=== PATIENT | male | born 2000 | race American Indian/Alaskan Native ===

== ENCOUNTER 2019-03-23 15:37 | Emergency (ER) | payer OTHER ==
--- NOTE | 2019-03-23 15:49 | Emergency Department Report ---
Stated Complaint: MH EVAL Time Seen by Provider: 03/23/19 15:46 - HPI History of Present Illness: TO MAIN WILL NOT LOOK AT [facility] MOTHER REPORTS SI HE STATES PROBLEM IS HIS PARENTS MSE screening note: Focused history and physical exam performed. Due to findings the following was ordered: ED Disposition for MSE Condition: Stable
[2019-03-23 16:13] LABS: Basophils # (Auto) 0.1 K/mm3 (0.0-0.1); Basophils % (Auto) 0.9 % (0.0-1.8); Eosinophils # (Auto) 0.2 K/mm3 (0.0-0.4); Eosinophils % (Auto) 4.1 % (0.0-4.3); Hematocrit 41.2 % (35.5-45.6); Hemoglobin 13.8 gm/dl (11.8-15.2); Lymphocytes # (Auto) 2.2 K/mm3 (1.2-5.4); Lymphocytes % (Auto) 37.3 % (13.4-35.0); Mean Corpuscular HGB Conc 33 % (32-34); Mean Corpuscular Volume 85 fl (84-94); Monocytes # (Auto) 0.6 K/mm3 (0.0-0.8); Monocytes % (Auto) 9.9 % (0.0-7.3); Platelet Count 198 K/mm3 (140-440); Red Blood Count 4.87 M/mm3 (3.65-5.03); Red Cell Distribution Width 14.5 % (13.2-15.2)
[2019-03-23 16:31] LABS: Alanine Aminotransferase 19 units/L (7-56); Albumin 4.1 g/dL (3.9-5); BUN/Creatinine Ratio 12; Blood Urea Nitrogen 12 mg/dL (9-20); Calcium 9.1 mg/dL (8.4-10.2); Hemolysis Index 6
[2019-03-23 16:49] LABS: Amphetamine Screen,Urine PRESUMPTIVE NEGATIVE; Benzodiazepines Screen,Urine PRESUMPTIVE NEGATIVE; Cannabinoid Screen,Urine PRESUMPTIVE NEGATIVE; Cocaine Screen,Urine PRESUMPTIVE NEGATIVE; Methadone Screen,Urine PRESUMPTIVE NEGATIVE; Opiate Screen,Urine PRESUMPTIVE NEGATIVE
--- NOTE | 2019-03-23 17:12 | Emergency Department Report ---
ED Psych HPI - General Chief Complaint: Psych Stated Complaint: ERNESTO EVNATALIA Time Seen by Provider: 03/23/19 15:46 Source: patient Mode of arrival: Ambulatory - History of Present Illness Initial Comments: Patient is 18 years old male with no significant past medical history. Most of the history is from his aunt who is his caregiver. Patient parents both in the house. Patient aunt stated that the patient stayed with his father body for 7 days in the house before telling anyone. Aunt stated that patient used to live in [place]. Patient aunt stated that she received a call from his teachers that he is living in a abandon house and she brought him to [place] but noticed that patient is very depressed and talking to himself at night. When I asked the patient he stated that he talk to his mother and father mainly at night and they asked him to stay awake so they can talk to him. Patient aunt stated that sometimes he will tell his aunt that he don't have any reason to stay in this world. Aunt is afraid that he will run away from her or hurt himself. Complaint: feels depressed, altered mental status -: week(s) Associated Psychiatric Symptoms: depression, auditory hallucinations Quality: constant Associated Symptoms: denies other symptoms - Related Data Allergies Allergy/AdvReac Type Severity Reaction Status Date / Time No Known Allergies Allergy Unverified 03/23/19 16:09 ED Review of Systems ROS: Stated complaint: ERNESTO EVAL Other details as noted in HPI Comment: All other systems reviewed and negative Constitutional: denies: chills, fever Respiratory: denies: cough, orthopnea, shortness of breath, SOB with exertion, SOB at rest, wheezing Cardiovascular: denies: chest pain, palpitations Gastrointestinal: denies: abdominal pain, nausea, diarrhea, constipation, hematemesis, melena, hematochezia Musculoskeletal: denies: back pain Neurological: denies: headache, weakness, numbness, paresthesias, confusion, abnormal gait Psychiatric: depression, auditory hallucinations, suicidal thoughts. denies: visual hallucinations, homicidal thoughts ED Past Medical Hx - Past Medical History Previous Medical History?: No - Surgical History Past Surgical History?: No - Social History Smoking Status: Never Smoker Substance Use Type: None ED Physical Exam - General Limitations: No Limitations General appearance: alert, other (depressed) - Head Head exam: Present: atraumatic, normocephalic, normal inspection - Eye Eye exam: Present: normal appearance - ENT ENT exam: Present: normal exam, normal orophraynx, mucous membranes moist - Neck Neck exam: Present: normal inspection, full ROM. Absent: tenderness, meningi smus, lymphadenopathy, thyromegaly - Respiratory Respiratory exam: Present: normal lung sounds bilaterally. Absent: respiratory distress, wheezes, rales, rhonchi, chest wall tenderness, accessory muscle use, decreased breath sounds, prolonged expiratory - Cardiovascular Cardiovascular Exam: Present: regular rate, normal rhythm, normal heart sounds - GI/Abdominal GI/Abdominal exam: Present: soft, normal bowel sounds. Absent: distended, tenderness, guarding, rebound, rigid, organomegaly, mass, bruit, pulsatile mass - Extremities Exam Extremities exam: Present: normal inspection, full ROM, normal capillary refill - Back Exam Back exam: Present: normal inspection, full ROM. Absent: tenderness, CVA tenderness (R), CVA tenderness (L), muscle spasm, paraspinal tenderness, vertebral tenderness - Neurological Exam Neurological exam: Present: alert, oriented X3, CN II-XII intact, normal gait, reflexes normal - Psychiatric Psychiatric exam: Present: depressed. Absent: agitated, anxious, flat affect, manic, homicidal ideation, suicidal ideation - Skin Skin exam: Present: warm, intact, normal color ED Course Vital Signs 03/23/19 03/23/19 16:08 20:48 Temperature 98.9 F 98.0 F Pulse Rate 67 75 Respiratory 18 18 Rate Blood Pressure 124/55 Blood Pressure 114/54 [Left] O2 Sat by Pulse 98 99 Oximetry ED Medical Decision Making - Lab Data Result diagrams: 03/23/19 16:03 03/23/19 16:03 - Medical Decision Making Patient is 18 years old male with no significant past medical history. Most of the history is from his aunt who is his caregiver. Patient parents both in the house. Patient aunt stated that the patient stayed with his father body for 7 days in the house before telling anyone. Aunt stated that patient used to live in [place]. Patient aunt stated that she received a call from his teachers that he is living in a abandon house and she brought him to [place] but noticed that patient is very depressed and talking to himself at night. When I asked the patient he stated that he talk to his mother and father mainly at night and they asked him to stay awake so they can talk to him. Patient aunt stated that sometimes he will tell his aunt that he don't have any reason to stay in this world. Aunt is afraid that he will run away from her or hurt himself. Patient is medically cleared to be admitted to inpatient psychiatric facility. Critical care attestation.: If time is entered above; I have spent that time in minutes in the direct care of this critically ill patient, excluding procedure time. ED Disposition Clinical Impression: Acute psychosis Disposition: [id number]/[facility]-65 PSY HOSP/PSY UNIT Is pt being admited?: No Condition: Stable
[2019-03-23 19:14] LABS: Mucus,Urine FEW /HPF
[2019-03-23 19:20] LABS: Bilirubin,Urine NEG (Negative); Blood,Urine NEG (Negative); Color,Urine Yellow (Yellow); Protein,Urine <15 mg/dL mg/dL (Negative); WBC,Urine < 1.0 /HPF (0.0-6.0)
[2019-03-24 07:48] VITALS: BP 114/65
== END 2019-03-24 14:10 ==
LOC: EEVIPCON 15:37 → ED 15:37
DX: F23 Brief psychotic disorder (principal)
CPT/HCPCS: 36415; 80053; 80307; 81001; 84443; 85025; 99285; G0480; 80320

== ENCOUNTER 2019-04-28 18:34 | Emergency (ER) | payer OTHER ==
--- NOTE | 2019-04-28 18:40 | Emergency Department Report ---
Blank Doc - Documentation Documentation: This is a 18-year-old male that presents with hearing voice. Denies SI/HI. This initial assessment/diagnostic orders/clinical plan/treatment(s) is/are subject to change based on patient's health status, clinical progression and re- assessment by fellow clinical providers in the ED. Further treatment and workup at subsequent clinical providers discretion. Patient/guardians urged not to elope from the ED as their condition may be serious if not clinically assessed and managed. Initial orders include: 1- Patient sent to MAIN ED for further evaluation and treatment 2- dry chain operator was notified to have patient be brought back [facility]. 3- RN was notified to keep patient as close range and observation until room available 4- Psych labs
[2019-04-28 19:28] LABS: Basophils % (Auto) 0.5 % (0.0-1.8); Eosinophils # (Auto) 0.2 K/mm3 (0.0-0.4); Eosinophils % (Auto) 3.8 % (0.0-4.3); Hematocrit 44.1 % (35.5-45.6); Hemoglobin 14.6 gm/dl (11.8-15.2); Lymphocytes # (Auto) 1.9 K/mm3 (1.2-5.4); Lymphocytes % (Auto) 32.6 % (13.4-35.0); Mean Corpuscular HGB Conc 33 % (32-34); Mean Corpuscular Volume 86 fl (84-94); Monocytes # (Auto) 0.6 K/mm3 (0.0-0.8); Monocytes % (Auto) 10.7 % (0.0-7.3); Platelet Count 219 K/mm3 (140-440); Red Blood Count 5.12 M/mm3 (3.65-5.03); Red Cell Distribution Width 14.6 % (13.2-15.2)
[2019-04-28 19:57] LABS: Bilirubin,Urine NEG (Negative); Blood,Urine NEG (Negative); Color,Urine Yellow (Yellow); Mucus,Urine FEW /HPF; Protein,Urine <15 mg/dL mg/dL (Negative); Urobilinogen,Urine < 2.0 mg/dL (<2.0); WBC,Urine < 1.0 /HPF (0.0-6.0)
[2019-04-28 20:05] VITALS: BP 129/51
--- NOTE | 2019-04-28 20:15 | Emergency Department Report ---
ED General Adult HPI - General Chief complaint: Psych Stated complaint: HEARING VOICES Time Seen by Provider: 04/28/19 18:39 Source: patient, family, RN notes reviewed, old records reviewed Mode of arrival: Ambulatory Limitations: No Limitations - History of Present Illness Initial comments: This is a 18-year-old gentleman. The patient is not known to this provider previously. The patient presents to the emergency room with a request for psychiatric evaluation. He denies physical pain at this time. He reports that he is hearing voices. Contrary to what is documented in nursing triage note, patient does not indicate that the voices are telling him to "fight things." However, he will state that the voices are occasionally telling him to not eat. He is not homicidal. He is not suicidal. He denies physical pain. He does not have access to guns or firearms. Reportedly, the patient was recently evaluated at this hospital for psychiatric reasons, had difficulty with personal insurance issues, went to an outpatient psychiatric hospital, and was reportedly prescribed medicines which neither he nor his relative can recall the names of, and he ran out of the aforementioned medications. He reportedly attempted to seek out outpatient psychiatric care and therapy, but has not been able to follow-up. An accompanying family member request that psychiatric medications be refilled. She does not know the names. -: Gradual Severity scale (0 -10): 0 Consistency: intermittent Improves with: none Worsens with: none - Related Data Home Medications Medication Instructions Recorded Confirmed Last Taken Unobtainable 03/24/19 03/24/19 Unknown Allergies Allergy/AdvReac Type Severity Reaction Status Date / Time No Known Allergies Allergy Unverified 03/23/19 16:09 ED Review of Systems ROS: Stated complaint: HEARING VOICES Other details as noted in HPI Constitutional: denies: fever Eyes: denies: eye pain ENT: denies: dental pain Cardiovascular: denies: chest pain Gastrointestinal: denies: abdominal pain Genitourinary: denies: testicular pain Musculoskeletal: denies: back pain Neurological: denies: headache Psychiatric: denies: visual hallucinations, homicidal thoughts, suicidal thoughts ED Past Medical Hx - Past Medical History Previous Medical History?: Yes Hx Psychiatric Treatment: Yes - Social History Smoking Status: Never Smoker Substance Use Type: None - Medications Home Medications: Home Medications Medication Instructions Recorded Confirmed Last Taken Type Unobtainable 03/24/19 03/24/19 Unknown History ED Physical Exam - General Limitations: No Limitations General appearance: alert, in no apparent distress - Head Head exam: Present: atraumatic, normocephalic - Eye Eye exam: Present: normal appearance, EOMI, other (visual acuity intact to finger counting, color perception, reading at a close distance). Absent: nystagmus - ENT ENT exam: Present: normal exam, normal orophraynx, mucous membranes moist, TM's normal bilaterally, normal external ear exam - Neck Neck exam: Present: normal inspection, full ROM. Absent: tenderness, meningismus - Respiratory Respiratory exam: Present: normal lung sounds bilaterally. Absent: respiratory distress - Cardiovascular Cardiovascular Exam: Present: regular rate, normal rhythm, normal heart sounds. Absent: bradycardia, tachycardia, irregular rhythm, systolic murmur, diastolic murmur, rubs, gallop - GI/Abdominal GI/Abdominal exam: Present: soft. Absent: distended, tenderness, guarding, pulsatile mass - Rectal Rectal exam: Present: deferred - Extremities Exam Extremities exam: Present: normal inspection, full ROM, other (2+ pulses noted in the bilateral upper extremities. There is no long bony tenderness. Moving 4 extremities spontaneously.) - Back Exam Back exam: Present: normal inspection, full ROM. Absent: tenderness, CVA tenderness (R), CVA tenderness (L), paraspinal tenderness, vertebral tenderness - Neurological Exam Neurological exam: Present: alert, oriented X3, normal gait, other (there is no facial droop. The tongue is midline. Extraocular movements are intact bilaterally. Speaking in full sentences. Hearing is grossly intact. Normal gait. 5 out of 5 strength in 4 extremities.). Absent: motor sensory deficit - Psychiatric Psychiatric exam: Present: flat affect - Skin Skin exam: Present: warm, dry, intact, normal color. Absent: rash ED Course Vital Signs 04/28/19 20:02 Temperature 98.8 F Pulse Rate 77 Respiratory 18 Rate Blood Pressure 129/51 [Right] O2 Sat by Pulse 99 Oximetry ED Medical Decision Making - Lab Data Result diagrams: 04/28/19 19:19 Vital Signs 04/28/19 20:02 Temperature 98.8 F Pulse Rate 77 Respiratory 18 Rate Blood Pressure 129/51 [Right] O2 Sat by Pulse 99 Oximetry Lab Results 04/28/19 04/28/19 Range/Units 19:19 19:30 WBC 5.8 (4.5-11.0) K/mm3 RBC 5.12 H (3.65-5.03) M/mm3 Hgb 14.6 (11.8-15.2) gm/dl Hct 44.1 (35.5-45.6) % MCV 86 (84-94) fl MCH 29 (28-32) pg MCHC 33 (32-34) % RDW 14.6 (13.2-15.2) % Plt Count 219 (140-440) K/mm3 Lymph % (Auto) 32.6 (13.4-35.0) % [place] % (Auto) 10.7 H (0.0-7.3) % Eos % (Auto) 3.8 (0.0-4.3) % Baso % (Auto) 0.5 (0.0-1.8) % Lymph # 1.9 (1.2-5.4) K/mm3 [place] # 0.6 (0.0-0.8) K/mm3 Eos # 0.2 (0.0-0.4) K/mm3 Baso # 0.0 (0.0-0.1) K/mm3 Seg Neutrophils % 52.4 (40.0-70.0) % Seg Neutrophils # 3.0 (1.8-7.7) K/mm3 Urine Color Yellow (Yellow) Urine Turbidity Clear (Clear) Urine pH 6.0 (5.0-7.0) Ur Specific [place] 1.019 (1.003-1.030) Urine Protein <15 mg/dl (Negative) mg/dL Urine Glucose (UA) Neg (Negative) mg/dL Urine Ketones Neg (Negative) mg/dL Urine Blood Neg (Negative) Urine Nitrite Neg (Negative) Urine Bilirubin Neg (Negative) Urine Urobilinogen < 2.0 (<2.0) mg/dL Ur Leukocyte Esterase Neg (Negative) Urine WBC (Auto) < 1.0 (0.0-6.0) /HPF Urine RBC (Auto) 1.0 (0.0-6.0) /HPF Urine Mucus Few /HPF - Medical Decision Making Differential diagnosis, including but not limited to: Request for psychiatric medication refill, mood disorder, general medical evaluation Assessment and plan: 18-year-old gentleman who is requesting psychiatric evaluation, medication refill. The patient does not meet 1013 criteria. He do es not appear to have an acute medically emergent condition. Explained to patient that this provider does not have expertise with initiating, and titrating outpatient psychiatric medications. Further explained to patient and family members that we would be happy to have the patient evaluated by our crisis team liaison, and provide the patient with appropriate outpatient resources. The patient was evaluated by our crisis team liaison, Ms Mccarty, and family left before receiving the paperwork. The patient is currently alert and oriented 3, clinically sober, exhibited decision-making capacity, and free from distracting injury. Conversation is witnessed by nurse Jerica Kay Screening laboratory studies were sent prior to my evaluation, and family and patient have elected to leave before they have resulted. Therefore, the patient is discharged AGAINST MEDICAL ADVICE. Critical care attestation.: If time is entered above; I have spent that time in minutes in the direct care of this critically ill patient, excluding procedure time. ED Disposition Clinical Impression: General medical exam Disposition: DC-07 LEFT AGAINST MED ADVICE Is pt being admited?: No Does the pt Need Aspirin: No Condition: Undetermined
[2019-04-28 20:19] LABS: Amphetamine Screen,Urine PRESUMPTIVE NEGATIVE; Benzodiazepines Screen,Urine PRESUMPTIVE NEGATIVE; Cannabinoid Screen,Urine PRESUMPTIVE NEGATIVE; Cocaine Screen,Urine PRESUMPTIVE NEGATIVE; Methadone Screen,Urine PRESUMPTIVE NEGATIVE; Opiate Screen,Urine PRESUMPTIVE NEGATIVE
[2019-04-28 20:56] LABS: BUN/Creatinine Ratio 8; Blood Urea Nitrogen 10 mg/dL (9-20); Calcium 9.1 mg/dL (8.4-10.2); Hemolysis Index 12
== END 2019-04-28 20:10 | disposition left against medical advice (07) ==
LOC: EEVIPCON 18:34 → ED 18:34
DX: R44.0 Auditory hallucinations (principal)
CPT/HCPCS: 36415; 80048; 80307; 81001; 85025; 99284; G0480; 80320